=== PATIENT | male | born 1990 | race Caucasian/White ===

== ENCOUNTER 2017-12-20 18:13 | Emergency (ER) | payer OTHER ==
--- NOTE | 2017-12-20 18:20 | EDPHY ---
H & P Time Seen by Provider: 12/20/17 18:17 HPI/ROS: HPI: This is a 27-year-old male who presents with Chief Complaint: Dog bite on both hands Location: Left hand Quality: Dog bite Duration: Prior to arrival Signs and Symptoms: + bleeding, no radiation, no numbness, no weakness, no tingling, no incontinence, no decreased range of motion, no swelling, + pain Timing: Acute Severity: [id number] Context: Patient reports that he was bit by his roommate terrier dog after he tried to get him out of the cage. He was downstairs pain is bedroom is he is moving out of the 1st the month when he her the dog barking for over an hour. His roommate had not been home all day so patient decided to go upstairs and to take the dog outside to use the restroom. As he is on hooking the cage lock, the dog lunged forward and cut his left 4th and 5th fingers. The immediately started to bleed. Patient reports the dog is up-to-date on immunizations. His last tetanus was 12 years ago. Denies paresthesias/skin color changes/weakness/ decreased range of motion. Patient applied direct pressure with a rag and himself to the emergency room. Modifying Factors: Direct pressure Comment: ROS: see HPI Constitutional: No fever, no chills, no weight loss Eyes: No blurred vision Respiratory: No shortness of breath, no cough Cardiovascular: No chest pain Gastrointestinal: No nausea, no vomiting no diarrhea Genitourinary: No dysuria Extremities: No myalgias Neurologic: No weakness, no numbness Skin: No rashes Hematologic: No bruising, no bleeding MEDICAL/SURGICAL/SOCIAL HISTORY: Medical history: Tourette's syndrome Surgical history: Denies Social history: Employed. CONSTITUTIONAL: Pleasant adult male, awake and alert, no obvious distress HEENT: Atraumatic and normocephalic, PERRL, EOMI. Tympanic membranes clear. Oropharynx clear, no exudate and moist pink mucosa. Airway patent. No lymphadenopathy. No meningismus. Cardiovascular: Normal S1/S2, regular rate, regular rhythm, without murmur rub or gallop. PULMONARY/CHEST: Symmetrical and nontender. Clear to auscultation bilaterally. Good air movement. No accessory muscle usage. ABDOMEN: Soft, nondistended, nontender, no rebound, no guarding, no peritoneal signs, no masses or organomegaly. No CVAT. EXTREMITIES: 2/2 radial pulses, helper/driver strength 5/5, left hand 5th distal tip show 0.5 cm superficial puncture site, both dorsal aspect of hand shows small abrasions. Puncture site left 3rd distal nail bed. DIP/PIP/MCP flexion, extension, light touch sensation intact. NEUROLOGICAL: no focal neuro deficits. GCS 15. SKIN: Warm and dry, no erythema. no rash. Good capillary refill. Source: Patient Exam Limitations: No limitations - Personal History Tetanus Vaccine Date: 2005 - Medical/Surgical History Other PMH: Tourette's syndrome - Social History Smoking Status: Never smoked Constitutional: Initial Vital Signs Temperature (C) 36.9 C 12/20/17 18:25 Heart Rate 85 12/20/17 18:25 Respiratory Rate 16 12/20/17 18:25 Blood Pressure 144/89 H 12/20/17 18:25 O2 Sat (%) 98 12/20/17 18:25 O2 Delivery Mode Room Air Allergies/Adverse Reactions: No Known Allergies Allergy (Unverified 12/20/17 18:25) Home Medications: Medication Instructions Recorded Duloxetine HCl 10/08/14 Amoxicillin/Clavulanate Pot 875 mg PO BID #14 tab 12/20/17 [Augmentin 875 MG TAB (*)] Medical Decision Making ED Course/Re-evaluation: Wound care provided LET topical applied, given ibuprofen, cleaned and irrigated thoroughly Tetanus booster and Augmentin given No signs of neurovascular compromise/tenting of skin/compartment syndrome/ extremities and joints examined above and below area of concern and are neurovascularly intact. Patient has a questionable laceration on his left hand 5th digit that may need delayed closure. All wounds were dressed with Xeroform, gauze. Patient is to return in 48-72 hours for wound check and to determine if delayed closure is needed. This patient was seen under the supervision of my primary supervising physician. I evaluated care for this patient independently. Differential Diagnosis: Differential diagnosis includes but is not limited to puncture wound, laceration , tendon injury, nerve injury. - Data Points Medications Given: Discontinued Medications Amoxicillin/Clavulanate Potassium (Augmentin 875mg) 875 mg PO EDNOW ONE PRN Reason: Protocol Stop: 12/20/17 18:42 Last Admin: 12/20/17 18:51 Dose: 875 mg Diphtheria/Tetanus/Acell Pertussis (Boostrix) 0.5 ml IM .ONCE ONE Stop: 12/20/17 18:42 Last Admin: 12/20/17 18:52 Dose: 0.5 ml Ibuprofen (Motrin) 800 mg PO EDNOW ONE Stop: 12/20/17 18:58 Last Admin: 12/20/17 18:59 Dose: 800 mg Tetracaine/Epinephrine/Lidocaine (Let Gel Topical) 1 ea TP EDNOW ONE Stop: 12/20/17 18:42 Last Admin: 12/20/17 18:56 Dose: 1 ea Departure - Departure Disposition: Home, Routine, Self-Care Clinical Impression: Dog bite of multiple sites of left hand and fingers Qualifiers: Encounter type: initial encounter Qualified Code(s): S61.452A - Open bite of left hand, initial encounter Condition: Good Instructions: Animal Bite (ED), Puncture Wound (ED) Additional Instructions: Keep the dressing dry and in place for 48 hours. After 48 hours, you may remove the dressing; wash the site daily with mild soap and water; then pat dry; apply topical [id number] antibiotic ointment and keep covered until fully healed. Take Tylenol 650 mg every 4 hours and/or Ibuprofen 600 mg every 8 hours with food as needed for pain. Take all of the Augmentin until complete. Please return to the emergency room in 48-72 hours, for wound recheck and to determine if delayed closure is needed. Referrals: [facility],. [Clinic] - As per Instructions Prescriptions: Amoxicillin/Clavulanate Pot [Augmentin 875 MG TAB (*)] 875 mg PO BID #14 tab
[2017-12-20] MEDS ORDERED: LET GEL TOPICAL 1 EA SYR TP ONE (18:41)
[2017-12-20] MEDS ORDERED: TDAP ADULT 0.5 ML INJ (BOOSTRIX) IM ONE (18:41)
[2017-12-20] MEDS ORDERED: AMOXICILLIN/CLAVULANATE POT 875/125 MG TAB PO ONE (18:41)
[2017-12-20] MEDS ORDERED: IBUPROFEN 800 MG TAB PO ONE (18:57)
[2017-12-20 20:06] VITALS: BP 124/85; PULSE 82; RESP 16; TEMP 97.9; O2SAT 93
== END 2017-12-20 20:05 | disposition home or self-care (01) ==
DX: S61.452A Open bite of left hand, initial encounter (principal); Z23 Encounter for immunization; W54.0XXA Bitten by dog, initial encounter; Y92.89 Other specified places as the place of occurrence of the external cause; Y93.89 Activity, other specified